=== PATIENT | male | born 1945 | race Caucasian/White ===

== ENCOUNTER 2019-07-14 11:08 | Inpatient (IN) | payer MEDICARE, OTHER ==
[2019-07-08 15:55] LABS: BASOPHILS # (AUTO) 0.1 X10'3 (0-0.2); EOSINOPHILS # (AUTO) 0.2 X10'3 (0-0.9); EOSINOPHILS % (AUTO) 2.7 % (0-6); LYMPHOCYTES # (AUTO) 2.2 X10'3 (1.1-4.8); LYMPHOCYTES % (AUTO) 31.9 % (21-51); MEAN CORPUSCULAR HEMOGLOBIN 30.8 PG (27.0-31.0); MEAN CORPUSCULAR HGB CONC 34.5 g/dL (33.0-36.5); MEAN CORPUSCULAR VOLUME 89.2 FL (78-98); MONOCYTES # (AUTO) 0.7 X10'3 (0-0.9); MONOCYTES % (AUTO) 10.4 % (2-12); NEUTROPHILS # (AUTO) 3.8 X10'3 (1.8-7.7); PRE OP HEMATOCRIT 42.8 % (42.0-52.0); PRE OP HEMOGLOBIN 14.8 g/dL (14.0-17.9); PRE OP PLATELET COUNT 263 X10'3 (140-440); RED CELL DISTRIBUTION WIDTH 14.2 % (11.5-14.5)
[2019-07-08 16:05] LABS: ALBUMIN 4.6 G/DL (3.4-5.0); ALBUMIN/GLOBULIN RATIO 1.2 (1.1-1.5); ALKALINE PHOSPHATASE 78 IU/L (46-116); BLOOD UREA NITROGEN 13 MG/DL (7-18); BUN/CREATININE RATIO 15.1 (5.4-32.0); CALCIUM 9.3 MG/DL (8.5-10.1); CHLORIDE 105 MMOL/L (99-107); CREATININE 0.86 MG/DL (0.60-1.10); PRE OP ALT 53 U/L (30-65); PRE OP ANION GAP 6 (8-16); PRE OP AST 26 U/L (10-37); PRE OP BILIRUB, TOTAL 0.6 MG/DL (0.0-1.0); PRE OP GLUCOSE 87 MG/DL (70-104); PRE OP SODIUM 143 MMOL/L (135-145); TOTAL CARBON DIOXIDE 32.1 MMOL/L (24-32); TOTAL PROTEIN 8.5 G/DL (6.4-8.2); eGFR 87 ML/MIN
[2019-07-08 16:08] LABS: HEMOGLOBIN A1C 5.9 % (4.5-6.2)
[2019-07-13] MEDS: normal saline 1000ml 1,000 ML IV SCH (15:15)
[2019-07-14] VITALS (13 sets, daily range): BP systolic 121–151; BP diastolic 48–83
[~2019-07-14] VITALS: Ht 180.3 cm; Wt 96.3 kg
[~2019-07-14 11:08] MED LIST: ALOG25TA2 PEG; CHOL10002 PO; GABA-530 PO; GLIM1TAB3 PO; LOSA25TA96 PO; SIMV10TA2 PO; TRAM50TA2 PO; acetaminophen 325mg tablet PO ONE; famotidine 20mg tablet PO ONE; gabapentin 300mg capsule PO ONE; metoclopramide 5 mg/ml inj IV ONE; oxyCODONE SR 10mg (sust. release) tab PO ONE; ringers solution, lacted 1,000 ML IV SCH; tranexamic acid inj. 1,000 MG in normal saline 100 ML IV ONE
[2019-07-14] MEDS ORDERED: cefazolin/dext.iso 2gm/100 ML IV ONE (11:45)
[2019-07-14] MEDS ORDERED: vancomycin inj 1,500 MG in normal saline 300ml IV soln IV ONE (11:45)
[2019-07-14] MEDS ORDERED: ketorolac trometh. 30mg/ml inj. ONE (14:31)
[2019-07-14] MEDS ORDERED: epiNEPHrine 1 mg/ml inj ONE (14:31)
[2019-07-14] MEDS ORDERED: morphine 10mg/ml inj. ONE (14:32)
[2019-07-14] MEDS ORDERED: Thrombin (Bovine) 5,000 unit vial TP ONE (14:32)
[2019-07-14] MEDS ORDERED: ceFAZolin 1000mg inj ONE (14:32)
[2019-07-14] MEDS ORDERED: ROPIVAcaine 0.5% (5mg/ml) 30ml vial ONE ×2 (14:32→18:29)
[2019-07-14] MEDS ORDERED: ringers solution, lacted 1,000 ML IV SCH (14:36)
[2019-07-14] MEDS ORDERED: meperidine/PF 25mg/ml syringe IV PRN ×3 (14:40)
[2019-07-14] MEDS ORDERED: morphine 4 MG/ML inj SYRINge IV PRN ×2 (14:40)
[2019-07-14] MEDS ORDERED: ondansetron/PF 4mg/2ml inj IV PRN ×2 (14:40→18:20)
[2019-07-14] MEDS ORDERED: proCHLORperazine 10 MG/2 ml inj IV PRN (14:40)
[2019-07-14] MEDS ORDERED: fentaNYL/PF 50MCG/1 ML 2ML syringe ONE (15:40)
[2019-07-14] MEDS ORDERED: MIDAZolam 5mg/5ml vial ONE (15:40)
[2019-07-14] MEDS ORDERED: ePHEDrine 50MG/ML INJ. ONE (16:09)
[2019-07-14] MEDS ORDERED: calcium chloride 100 MG/1 ML inj IV ONE (16:47)
[2019-07-14] MEDS ORDERED: vancomycin 1,000mg inj ONE (17:59)
[2019-07-14] MEDS ORDERED: HYDROmorphone inj. 0.5 MG/0.5 ML DISP.SYRIN IV PRN (18:20)
[2019-07-14] MEDS ORDERED: oxyCODONE IR 5mg (immed. release) tablet PO PRN (18:20)
[2019-07-14] MEDS ORDERED: HYDROmorphone 1 mg/ml syringe IV PRN (18:20)
[2019-07-14] MEDS ORDERED: diphenhydrAMINE 25mg capsule PO PRN ×2 (18:20)
[2019-07-14] MEDS ORDERED: magnesium hydroxide 30ml (MOM) UD suspension PO PRN (18:20)
[2019-07-14] MEDS ORDERED: acetaminophen 325mg tablet PO PRN (18:20)
[2019-07-14] MEDS ORDERED: bisacodyl 10mg suppository rectal RC PRN (18:20)
[2019-07-14] MEDS ORDERED: dexamethasone sod phosphate 4mg/ml inj. ONE (18:29)
--- NOTE | 2019-07-14 19:16 | NUR ---
Received from OR via ORTHO BED WITH [facility], accompanied by Anesthesiologist HOLLAND and report given by Anesthesiolgist. DENIES PAIN, SENSATION LEVEL DOWN TO ANKLE. NERVE BLOCK SITE TO RIGHT THIGH AND KNEE WRAP COLD PACK TO RIGHT KNEE THAT IS CDI. + DORSALIS PEDIS PRESENT. YEIMI FRANCOIS FOR COMFORT. SCDS DONNED. 3L NASAL CANNULA PRESENT WITH 97% SATURATIONS. AYAD. Addendum: 07/14/19 at 1932 by Hieu Ty RN, RN Amended: Links added.
[2019-07-14] MEDS ORDERED: gabapentin 100mg capsule PO SCH (20:00)
[2019-07-14] MEDS ORDERED: vancomycin/NS 1 GM ADD-VANTAGE 250 ML IV SCH (20:00)
[2019-07-14] MEDS ORDERED: ROPIVAcaine 0.2%/PF PAIN PUMP 550 ML IJ SCH (20:03)
--- NOTE | 2019-07-14 20:06 | NUR ---
ALL CRITERIA FOR TRANSFER TO THE FLOOR HAS BEEN ACHIEVED. VSS. BED LOW, CALL LIGHT AND VS. SET IN PLACE. RN PRESENT TO ACCEPT CARE. PATIENT RESTING COMFORTABLY IN BED. BELONGINGS SENT WITH PATIENT. DRESSINGS CDI. Addendum: 07/14/19 at 2013 by Hieu Ty RN RN Amended: Links added.
[2019-07-14] MEDS: glimepiride 1 MG tablet PO SCH (21:00)
[2019-07-14] MEDS: atorvastatin 10mg tablet PO SCH (21:00)
[2019-07-14] MEDS: vitamin D (cholecalciferol) 1,000 unit tablet PO SCH (21:00)
[2019-07-14] MEDS ORDERED: traMADol 50MG tablet PO PRN (21:00)
[2019-07-14] MEDS: acetaminophen 325mg tablet PO SCH (21:00)
[2019-07-14] MEDS: losartan 25mg tablet PO SCH (21:00)
[2019-07-14] MEDS: gabapentin 300mg capsule PO SCH (21:01)
[2019-07-14] MEDS: sennosides 8.6mg tablet PO SCH (21:02)
[2019-07-14] MEDS ORDERED: tranexamic acid inj. 1,000 MG in normal saline 100ml IV soln 100 ML IV ONE (21:30)
[2019-07-15] MEDS: ceFAZolin 1GM/D5W- ADD-VANTAGE 50 ML IV SCH ×2 (01:10→07:13)
[2019-07-15] MEDS: acetaminophen 325mg tablet PO SCH ×4 (01:14→20:20)
[2019-07-15 02:12] VITALS: BP 111/59
[2019-07-15] MEDS: oxyCODONE IR 5mg (immed. release) tablet PO PRN ×3 (05:25→14:11)
[2019-07-15 05:50] LABS: BASOPHILS % (AUTO) 0.1 % (0-1); EOSINOPHILS % (AUTO) 0 % (0-6); HEMATOCRIT 39.6 % (42.0-52.0); HEMOGLOBIN 13.8 g/dl (14.0-17.9); LYMPHOCYTES # (AUTO) 0.5 X10'3 (1.1-4.8); LYMPHOCYTES % (AUTO) 2.6 % (21-51); MEAN CORPUSCULAR HEMOGLOBIN 31.2 PG (27.0-31.0); MEAN CORPUSCULAR HGB CONC 34.7 g/dL (33.0-36.5); MEAN CORPUSCULAR VOLUME 89.7 FL (78-98); MEAN PLATELET VOLUME 7.2 FL (7.4-10.4); MONOCYTES # (AUTO) 0.9 X10'3 (0-0.9); MONOCYTES % (AUTO) 4.9 % (2-12); NEUTROPHILS # (AUTO) 17.7 X10'3 (1.8-7.7); NEUTROPHILS % (AUTO) 92.4 % (42-75); PLATELET COUNT 194 X10'3 (140-440); RED BLOOD COUNT 4.41 X10'6 (4.70-6.10); RED CELL DISTRIBUTION WIDTH 13.9 % (11.5-14.5); WHITE BLOOD COUNT 19.2 X10'3 (4.5-11.0)
[2019-07-15 06:02] LABS: ANION GAP 8 (8-16); CHLORIDE 105 MMOL/L (99-107); POTASSIUM 4.5 MMOL/L (3.5-5.1); SODIUM 139 MMOL/L (135-145); TOTAL CARBON DIOXIDE 26.3 MMOL/L (24-32)
--- NOTE | 2019-07-15 06:15 | NUR ---
Problems reprioritized. Patient report given, questions answered & plan of care reviewed with ERNESTO Yu and ERNESTO Cody.
[2019-07-15 06:39] VITALS: BP 113/43
--- NOTE | 2019-07-15 06:40 | NUR ---
Patient in room ORTHO 4014. I have received report from Danay OROZCO and had the opportunity to ask questions and assume patient care.
[2019-07-15] MEDS: gabapentin 300mg capsule PO SCH ×3 (07:12→20:19)
[2019-07-15] MEDS: enoxaparin 40mg/0.4ml syringe SQ SCH (07:14)
[2019-07-15 10:04] VITALS: BP 101/51
--- NOTE | 2019-07-15 11:00 | NUR ---
Pt wanting to sit up in recliner refusing CPM at this time.
[2019-07-15 14:00] VITALS: BP 111/61
[2019-07-15] MEDS: normal saline 1000ml 1,000 ML IV SCH (14:12)
--- NOTE | 2019-07-15 15:41 | NUR ---
anesthesiologist turn on-q to 12ml/hr said to turn down to 10 when pain is at a zero.
[2019-07-15 18:00] VITALS: BP 115/53
--- NOTE | 2019-07-15 18:12 | NUR ---
Problems reprioritized. Patient report given, questions answered & plan of care reviewed with ROCIO OROZCO.
[2019-07-15] MEDS: celeCOXIB 100mg capsule PO SCH (20:20)
[2019-07-15] MEDS: sennosides 8.6mg tablet PO SCH (20:21)
[2019-07-15] MEDS: losartan 25mg tablet PO SCH (20:21)
[2019-07-15] MEDS: vitamin D (cholecalciferol) 1,000 unit tablet PO SCH (20:21)
[2019-07-15] MEDS: glimepiride 1 MG tablet PO SCH (20:21)
[2019-07-15] MEDS: atorvastatin 10mg tablet PO SCH (20:21)
--- NOTE | 2019-07-15 21:00 | NUR ---
patient stated that MD said he would be bringing the CPM home. Charge nurse tried explaining that it would not be the same machine, as we do not send equipment home with patients. MD orders one that is for rent and paid for by insurance. process planner would set this up for him. He started yelling at her and stating that this is what the MD said and he was mad that it was not as simple as loading it up in the car and leaving.
[2019-07-15 22:00] VITALS: BP 105/51
--- NOTE | 2019-07-15 23:41 | NUR ---
patient was yelling out in room that something happened while on CPM. he said that it made a loud clunk and now it wasn't working right. I checked machine and settings were still at -5 to 90 degrees. He said his knee WAS going up to the bottom of the tv but now it was not going as high. I stated that maybe the tv got moved. He was adamant that this was not the case. He said it brendan him awake and he was now 8/10 pain. I offered pain medication, he said he took some just a little bit ago. I explained that he had had gabapentin and tylenol, but if he was in 8/10 pain I could give him some Oxy. He refused this and he refused my offer of a cold powder pack. Patient allowed me to take CPM off, as it was over 1 hour since placing it on.
[2019-07-16] MEDS: oxyCODONE IR 5mg (immed. release) tablet PO PRN ×3 (00:42→12:16)
--- NOTE | 2019-07-16 00:49 | NUR ---
patient still c/o pain and distress from CPM. he states that he "used to be able to bend his knee up high with little pain" and "now, when I do it it hurts 8/10, ever since the CPM made that snap". I asked patient if he felt like something "snapped in his knee". he said no. I tried to explain to patient that 24 hours post op is when it starts to really hurt and that since CPM hadn't been used except for once today, that was probably why he was in so much pain now. He adamantly insisted that it was fine before the CPM clunked and jerked his leg. I appeased patient by notifying Dr. Becerra by phone. No new order for xray. stated that patient can be difficult and understood that the CPM was not snapping or clunking when nursing assessed it. I let the patient know that MD was notified and he would see him tomorrow before DC. Oxy and powder pack given for pain management
[2019-07-16] MEDS: acetaminophen 325mg tablet PO SCH ×3 (02:00→14:11)
--- NOTE | 2019-07-16 05:36 | NUR ---
awoke patient to give him pain analgesic prior to PT. He stated "I don't know what happened last night. It must've been all the medications". His voice was mellow and calm at this time. I did not bring up that he had not had any different "medication" and that he had refused analgesics up to that point.
[2019-07-16 05:45] LABS: BASOPHILS # (AUTO) 0.1 X10'3 (0-0.2); BASOPHILS % (AUTO) 0.5 % (0-1); EOSINOPHILS # (AUTO) 0.3 X10'3 (0-0.9); EOSINOPHILS % (AUTO) 2.5 % (0-6); HEMATOCRIT 34.6 % (42.0-52.0); LYMPHOCYTES # (AUTO) 0.9 X10'3 (1.1-4.8); MEAN CORPUSCULAR HGB CONC 34.8 g/dL (33.0-36.5); MEAN CORPUSCULAR VOLUME 88.9 FL (78-98); MONOCYTES # (AUTO) 0.8 X10'3 (0-0.9); MONOCYTES % (AUTO) 7.1 % (2-12); NEUTROPHILS # (AUTO) 9.1 X10'3 (1.8-7.7); NEUTROPHILS % (AUTO) 81.9 % (42-75); PLATELET COUNT 162 X10'3 (140-440); RED BLOOD COUNT 3.89 X10'6 (4.70-6.10); RED CELL DISTRIBUTION WIDTH 14.3 % (11.5-14.5); WHITE BLOOD COUNT 11.1 X10'3 (4.5-11.0)
[2019-07-16 06:00] VITALS: BP 97/52
--- NOTE | 2019-07-16 06:05 | NUR ---
Patient in room ORTHO 4014. I have received report from ROCIO OROZCO and had the opportunity to ask questions and assume patient care.
--- NOTE | 2019-07-16 06:11 | NUR ---
Problems reprioritized. Patient report given, questions answered & plan of care reviewed with ERNESTO Cody.
--- NOTE | 2019-07-16 08:00 | NUR ---
ON-Q TURNED DOWN TO 10ML/HR
[2019-07-16] MEDS: gabapentin 300mg capsule PO SCH ×2 (08:26→14:11)
[2019-07-16] MEDS: enoxaparin 40mg/0.4ml syringe SQ SCH (08:27)
[2019-07-16] MEDS: celeCOXIB 100mg capsule PO SCH (08:27)
[2019-07-16 10:00] VITALS: BP 122/54
[2019-07-16] MEDS ORDERED: acetaminophen 325mg tablet PO PRN (18:20)
== END 2019-07-16 16:30 | disposition home health service (06) | DRG 467 ==
LOC: PAS IN 11:08 → EDSTATUS 13:45 → ORTHO 4S 20:10
PROVIDERS: ADMIT Orthopaedic Surgery; ATTEND Orthopaedic Surgery
PROC: 3E0T3BZ Introduction of Anesthetic Agent into Peripheral Nerves and Plexi, Percutaneous Approach (ICD-10-PCS; 2019-07-14)
PROC: 8E0YXBZ Computer Assisted Procedure of Lower Extremity (ICD-10-PCS; 2019-07-14)
PROC: 8E0Y0CZ Robotic Assisted Procedure of Lower Extremity, Open Approach (ICD-10-PCS; 2019-07-14)
PROC: 0T7D8ZZ Dilation of Urethra, Via Natural or Artificial Opening Endoscopic (ICD-10-PCS; 2019-07-14)
PROC: 0T9B80Z Drainage of Bladder with Drainage Device, Via Natural or Artificial Opening Endoscopic (ICD-10-PCS; 2019-07-14)
PROC: 0SPV0JZ Removal of Synthetic Substitute from Right Knee Joint, Tibial Surface, Open Approach (ICD-10-PCS; principal; 2019-07-14 15:32)
PROC: 0SRV0J9 Replacement of Right Knee Joint, Tibial Surface with Synthetic Substitute, Cemented, Open Approach (ICD-10-PCS; 2019-07-14 15:32)
DX: T84.82XA Fibrosis due to internal orthopedic prosthetic devices, implants and grafts, initial encounter (principal); D62 Acute posthemorrhagic anemia; N36.5 Urethral false passage; E11.9 Type 2 diabetes mellitus without complications; N40.0 Benign prostatic hyperplasia without lower urinary tract symptoms; E78.5 Hyperlipidemia, unspecified; I10 Essential (primary) hypertension; Y83.1 Surgical operation with implant of artificial internal device as the cause of abnormal reaction of the patient, or of later complication, without mention of misadventure at the time of the procedure; Y92.89 Other specified places as the place of occurrence of the external cause; Z79.899 Other long term (current) drug therapy; Z87.891 Personal history of nicotine dependence
CPT/HCPCS: 36415; 80051; 80053; 82948; 83036; 85025; 87081; 93005; 97110; 97116; 97161; 97530; A4215; A4340; A4618; A7000; A9272; C1713; C1758; C1769; C1776; G0378; J0171; J0690; J1100; J1650; J1885; J2250; J2270; J2765; J2795; J3010; J3370; J7030; J7120

== ENCOUNTER 2019-07-17 20:48 | Emergency (ER) | payer MEDICARE ==
[~2019-07-17] VITALS: Ht 177.8 cm; Wt 212.0 kg
[~2019-07-17 20:48] MED LIST changes: -acetaminophen 325mg tablet PO ONE; -famotidine 20mg tablet PO ONE; -gabapentin 300mg capsule PO ONE; -metoclopramide 5 mg/ml inj IV ONE; -oxyCODONE SR 10mg (sust. release) tab PO ONE; -ringers solution, lacted 1,000 ML IV SCH; -tranexamic acid inj. 1,000 MG in normal saline 100 ML IV ONE
[2019-07-17 22:19] VITALS: BP 135/56
== END 2019-07-17 22:22 | disposition home or self-care (01) ==
LOC: ER 20:48
DX: T83.038A Leakage of other urinary catheter, initial encounter (principal); E78.00 Pure hypercholesterolemia, unspecified; I10 Essential (primary) hypertension; E11.9 Type 2 diabetes mellitus without complications; Z98.890 Other specified postprocedural states; Z79.899 Other long term (current) drug therapy; Y84.6 Urinary catheterization as the cause of abnormal reaction of the patient, or of later complication, without mention of misadventure at the time of the procedure; Y92.89 Other specified places as the place of occurrence of the external cause
CPT/HCPCS: 99281; 99282

== ENCOUNTER 2021-04-16 12:16 | Inpatient (IN) | payer MEDICARE ==
[2021-04-11 11:48] LABS: BASOPHILS # (AUTO) 0.1 X10'3 (0-0.2); BASOPHILS % (AUTO) 0.9 % (0-1); EOSINOPHILS # (AUTO) 0.2 X10'3 (0-0.9); EOSINOPHILS % (AUTO) 3.4 % (0-6); LYMPHOCYTES # (AUTO) 2.1 X10'3 (1.1-4.8); LYMPHOCYTES % (AUTO) 29.9 % (21-51); MEAN CORPUSCULAR HEMOGLOBIN 30.3 PG (27.0-31.0); MEAN CORPUSCULAR VOLUME 89.3 FL (78-98); MONOCYTES # (AUTO) 0.6 X10'3 (0-0.9); MONOCYTES % (AUTO) 9.1 % (2-12); NEUTROPHILS % (AUTO) 56.7 % (42-75); PRE OP HEMATOCRIT 42.7 % (42.0-52.0); PRE OP HEMOGLOBIN 14.5 g/dL (14.0-17.9); PRE OP PLATELET COUNT 225 X10'3 (140-440); RED BLOOD COUNT 4.79 X10'6 (4.70-6.10); RED CELL DISTRIBUTION WIDTH 13.4 % (11.5-14.5)
[2021-04-11 12:07] LABS: PRE OP INR 1.1 INR; PRE OP PROTIME 11.1 SECONDS (9.0-12.0)
[2021-04-11 12:10] LABS: ALBUMIN 4.2 G/DL (3.4-5.0); ALBUMIN/GLOBULIN RATIO 1.1 (1.1-1.5); ALKALINE PHOSPHATASE 94 IU/L (46-116); BLOOD UREA NITROGEN 10 MG/DL (7-18); BUN/CREATININE RATIO 12.5 (5.4-32.0); CALCIUM 9.2 MG/DL (8.5-10.1); CHLORIDE 101 MMOL/L (99-107); PRE OP ALT 46 U/L (30-65); PRE OP ANION GAP 7 (8-16); PRE OP AST 32 U/L (10-37); PRE OP BILIRUB, TOTAL 0.5 MG/DL (0.0-1.0); PRE OP GLUCOSE 151 MG/DL (70-104); PRE OP SODIUM 140 MMOL/L (135-145); TOTAL CARBON DIOXIDE 31.7 MMOL/L (24-32); TOTAL PROTEIN 7.9 G/DL (6.4-8.2); eGFR > 90 ML/MIN
[2021-04-11 12:16] LABS: HEMOGLOBIN A1C 7.2 % (4.5-6.2)
[~2021-04-16] VITALS: Ht 177.8 cm; Wt 98.6 kg
[2021-04-16] VITALS (17 sets, daily range): BP systolic 110–159; BP diastolic 51–81
[~2021-04-16 12:16] MED LIST changes: -ALOG25TA2 PEG; -GABA-530 PO; -GLIM1TAB3 PO; +METF750T46 PO; +TERA1CAP4 PO; -TRAM50TA2 PO; +cefazolin/dext.iso 2gm/100ml IV ONE; +famotidine 20mg tablet PO ONE; +ringers solution, lacted 1,000 ML IV SCH; +vancomycin 1,500 MG in NS 300ml IV soln IV ONE
[2021-04-16] MEDS ORDERED: morphine 4 MG/ML inj SYRINge IV PRN (13:20)
[2021-04-16] MEDS ORDERED: morphine 2 MG/ML inj. syringe IV PRN (13:20)
[2021-04-16] MEDS ORDERED: ondansetron/PF 4mg/2ml inj IV PRN ×2 (13:20→18:20)
[2021-04-16] MEDS ORDERED: ringers solution, lacted 1,000 ML IV SCH (13:20)
[2021-04-16] MEDS ORDERED: hydrALAZINE 20mg/ml inj. IV PRN (13:20)
[2021-04-16] MEDS ORDERED: fentaNYL/PF 50MCG/1 ML 2ML syringe IV PRN ×2 (13:20)
[2021-04-16] MEDS ORDERED: labetalol 20mg/4ml (5mg/ml) syringe IV PRN (13:20)
--- NOTE | 2021-04-16 13:45 | NUR ---
PT C/O ITCHING CURRENTLY RECEIVING VANCOMYCIN IVPB, DR SPANN AT BEDSIDE-ORDERS GIVEN TO CHANGE ABX TO CLINDAMYCIN. PT WILL STAY OVERNIGHT AFTER SX
[2021-04-16] MEDS ORDERED: clindamycin 600mg/D5W 50ml 50 ML IV STA (13:53)
[2021-04-16] MEDS ORDERED: BUPIVAcaine/PF 2.5 mg/ml (0.25%) 30ml vial ONE (14:01)
[2021-04-16] MEDS ORDERED: LIDOcaine 2% (20mg/ml) 5ml vial ONE ×2 (14:19→14:20)
[2021-04-16] MEDS ORDERED: fentaNYL/PF 50MCG/1 ML 2ML syringe ONE ×2 (14:19→16:01)
[2021-04-16] MEDS ORDERED: propofol inj 20 ML IV ONE (14:20)
[2021-04-16] MEDS ORDERED: ondansetron/PF 4mg/2ml inj ONE (14:21)
[2021-04-16] MEDS ORDERED: sevoflurane 250ml liquid IH ONE (14:22)
[2021-04-16] MEDS ORDERED: ePHEDrine 50MG/ML INJ. ONE (14:43)
[2021-04-16] MEDS ORDERED: labetalol 20mg/4ml (5mg/ml) syringe IV ONE (15:27)
[2021-04-16] MEDS ORDERED: hydrALAZINE 20mg/ml inj. IV ONE (16:34)
--- NOTE | 2021-04-16 18:14 | NUR ---
Received from OR via BED, accompanied by Anesthesiologist DR. TRACEY and report given by Anesthesiologist. PATIENT IS LAYING ON BED SPINE, SLEEPY, SOME MOVEMENT TO VOICE, V.S. STABLE, LEFT FOREARM WITH DRESSING AND AKIN WRAP, PIV ON RIGHT HAND 18G, LR RUNNING, WILL MONITOR. Addendum: 04/16/21 at 1834 by Ilda Sauer RN Amended: Links added.
[2021-04-16] MEDS ORDERED: acetaminophen 325mg tablet PO PRN (18:20)
[2021-04-16] MEDS ORDERED: bisacodyl 10mg suppository rectal RC PRN (18:20)
[2021-04-16] MEDS ORDERED: diphenhydrAMINE 25mg capsule PO PRN ×2 (18:20)
[2021-04-16] MEDS ORDERED: HYDROmorphone 1 mg/ml syringe IV PRN (18:20)
[2021-04-16] MEDS ORDERED: magnesium hydroxide 30ml (MOM) UD suspension PO PRN (18:20)
[2021-04-16] MEDS ORDERED: MESSAGE TO PHARMACY PO ONE (18:25)
[2021-04-16] MEDS ORDERED: dextrose ORAL solution 15 GM/59 ML bottle PO PRN ×2 (18:25)
[2021-04-16] MEDS ORDERED: insulin Lispro (HumaLOG) vial - multi-dose SQ SCH (18:25)
[2021-04-16] MEDS ORDERED: glucagon, human recombinant 1mg kit SUBCUT PRN (18:25)
[2021-04-16] MEDS ORDERED: dextrose 50%-water 50ml dispensing syringe IV PRN ×2 (18:25)
[2021-04-16] MEDS: HYDROcodone/acetaminophen 10/325mg tab PO PRN (19:13)
--- NOTE | 2021-04-16 19:24 | NUR ---
REPORT GIVEN TO MARCH RN IN ORTHO, PATIENT'S V.S. STABLE, A&O, LEFT ARM WITH DRESSING AND AKIN WRAP CDI, ICE ON LEFT ARM, ELEVATED WITH PILLOWS, PIV 18G ON RIGHT HAND LR RUNNING AT 100ML/HR, TRANSFERRED IN BED, RECEIVING NURSE AT BEDSIDE. Addendum: 04/16/21 at 1952 by Ilda Sauer RN Amended: Links added.
[2021-04-16] MEDS: clindamycin 600mg/D5W 50ml 50 ML IV SCH (20:49)
[2021-04-16] MEDS ORDERED: losartan 25mg tablet PO SCH (21:00)
[2021-04-16] MEDS ORDERED: metFORMIN 500mg tablet PO SCH (21:00)
[2021-04-16] MEDS ORDERED: insulin glargine (Lantus) pen - multi-dose SQ SCH (21:00)
[2021-04-16] MEDS ORDERED: sennosides 8.6mg tablet PO SCH (21:00)
[2021-04-16] MEDS ORDERED: Terazosin 1mg capsule PO SCH (21:00)
[2021-04-17] MEDS: ceFAZolin/D5W- 1GM premix 50 ML IV SCH ×2 (00:24→08:35)
[2021-04-17] MEDS: HYDROcodone/acetaminophen 10/325mg tab PO PRN ×4 (00:25→14:49)
[2021-04-17] MEDS: potassium Cl 20mEq in NS 1,000 ML IV SCH ×2 (00:28→07:40)
[2021-04-17 02:00] VITALS: BP 109/67
[2021-04-17] MEDS: clindamycin 600mg/D5W 50ml 50 ML IV SCH (02:04)
--- NOTE | 2021-04-17 06:37 | NUR ---
Patient in room ORTHO 4013. I have received report from Maci RN and had the opportunity to ask questions and assume patient care.
[2021-04-17 06:54] VITALS: BP 116/57
--- NOTE | 2021-04-17 09:08 | NUR ---
DM Consult: Pt A1C 7.2 appropriate given age. Addendum: 04/17/21 at [address] Amended: Links added.
[2021-04-17 11:45] VITALS: BP 101/51
[2021-04-17] MEDS ORDERED: HYDR-3972 PO (14:41)
--- NOTE | 2021-04-17 14:55 | NUR ---
Reinforced dressing per Caren Sifuentes NP verbal order. Patient will go home with cold pack and dressings to reinforce if needed. Patient and are both aware not to remove dressing until appointment with MD. Verbal acknowledgement completed by patient of understanding. Addendum: 04/17/21 at 1458 by Kyleigh Robert RN Sling provided and placed on patient.
== END 2021-04-17 16:31 | disposition home or self-care (01) | DRG 514 ==
LOC: PAS 12:16 → ORTHO 4S 18:19 → PAS 18:19 → PAS IN 19:00 → ORTHO 4S 19:06 → PAS 04-17 16:31
PROVIDERS: ADMIT Orthopaedic Surgery; ATTEND Orthopaedic Surgery
PROC: 0RGP07Z Fusion of Left Wrist Joint with Autologous Tissue Substitute, Open Approach (ICD-10-PCS; principal; 2021-04-16 14:22)
DX: M19.032 Primary osteoarthritis, left wrist (principal); I10 Essential (primary) hypertension; E11.9 Type 2 diabetes mellitus without complications; N40.0 Benign prostatic hyperplasia without lower urinary tract symptoms; Z79.899 Other long term (current) drug therapy
CPT/HCPCS: 36415; 80053; 82948; 83036; 85025; 85610; 85730; 87081; 93005; A4215; A4618; A6223; A6449; A7000; C1713; G0378; J0360; J0690; J1815; J2001; J2405; J2704; J3010; J3370; J3480; J3490; J7040; J7120

== ENCOUNTER 2024-02-01 14:48 | Emergency (ER) | payer MEDICARE, OTHER ==
[~2024-02-01] VITALS: Ht 180.3 cm; Wt 104.5 kg
[~2024-02-01 14:48] MED LIST changes: -CHOL10002 PO; +HYDR-3972 PO; +LOSA-415 PO; -LOSA25TA96 PO; -SIMV10TA2 PO; -cefazolin/dext.iso 2gm/100ml IV ONE; -famotidine 20mg tablet PO ONE; -ringers solution, lacted 1,000 ML IV SCH; -vancomycin 1,500 MG in NS 300ml IV soln IV ONE
[2024-02-01 15:00] VITALS: BP 138/72; PULSE 59; RESP 20; TEMP 97; O2SAT 99
== END 2024-02-01 16:29 | disposition home or self-care (01) ==
LOC: ER 14:49
DX: S00.01XA Abrasion of scalp, initial encounter (principal); I10 Essential (primary) hypertension; E78.00 Pure hypercholesterolemia, unspecified; E11.9 Type 2 diabetes mellitus without complications; Z98.890 Other specified postprocedural states; Z79.4 Long term (current) use of insulin; Z79.899 Other long term (current) drug therapy; W22.8XXA Striking against or struck by other objects, initial encounter; Y93.89 Activity, other specified; Y92.89 Other specified places as the place of occurrence of the external cause; Y99.8 Other external cause status
CPT/HCPCS: 70450; 99284

== ENCOUNTER 2025-11-28 05:49 | Day surgery (SDC) | payer MEDICARE, OTHER ==
[2025-11-17 14:25] LABS: MEAN PLATELET VOLUME 7.2 FL (7.4-10.4); PRE OP HEMATOCRIT 45.8 % (42.0-52.0); PRE OP HEMOGLOBIN 15.8 g/dL (14.0-17.9); PRE OP PLATELET COUNT 224 X10'3 (140-440); PRE OP WHITE BLOOD COUNT 6.8 10'3 (4.8-10.8); RED CELL DISTRIBUTION WIDTH 14.1 % (11.5-14.5)
--- NOTE | 2025-11-17 14:26 | ELECTROCARDIOGRAPH REPORT ---
[facility] Test Date: 2025-11-17 Test Time: 14:24:03 Pat Name: JOHN DASH Department: [facility]-PRE-OP Patient ID: [facility]-[id number] Room: Gender: M Nursing Agency Manager: sadia : 1945 Requested By: LUIS ZABALA Order Number: [id number] Reading MD: Dr. Shell Barker Measurements Intervals [place] Rate: 61 P: 69 MN: 213 QRS: 29 QRSD: 152 T: 63 QT: 453 QTc: 457 Interpretive Statements Sinus rhythm Borderline prolonged MN interval Right bundle branch block Electronically Signed On 11-17-2025 15:17:[address] Shell Barker Please click the below link to view image of tracing.
[2025-11-17 14:38] LABS: CREATININE 0.89 MG/DL (0.60-1.10); PRE OP ALT 48 U/L (30-65); PRE OP ANION GAP 8 (8-16); PRE OP AST 28 U/L (10-37); PRE OP BILIRUB, TOTAL 0.6 MG/DL (0.0-1.0); PRE OP GLUCOSE 106 MG/DL (70-104); PRE OP POTASSIUM 4.3 MMOL/L (3.4-5.1); PRE OP SODIUM 140 MMOL/L (135-145); TOTAL CARBON DIOXIDE 29.7 MMOL/L (24-32); eGFR 82 ML/MIN
[~2025-11-28] VITALS: Ht 177.8 cm; Wt 93.4 kg
[2025-11-28] VITALS (8 sets, daily range): BP systolic 122–145; BP diastolic 68–76; PULSE 50–61; RESP 10–18; TEMP 97.4; O2SAT 97–100
[~2025-11-28 05:49] MED LIST changes: +ATOR10TA87 PO; +CELE-193 PO; +CHOL20002 PO; +DULO30CA52 PO; +EMPA25TA PO; +GLIM2TAB6 PO; -HYDR-3972 PO; -METF750T46 PO; +PREG75CA76 PO; +SITA100T15 PO; -TERA1CAP4 PO
[2025-11-28] MEDS: ceFAZolin 2gm/dext,iso 50mL 50 ML IV ONE (06:28)
[2025-11-28] MEDS: ringers solution, lacted 1,000 ML IV SCH (06:29)
[2025-11-28] MEDS ORDERED: BUPIVAcaine/PF 2.5mg/ml (0.25%) 10ml vial ONE (06:50)
[2025-11-28] MEDS ORDERED: LIDOcaine 2% (20mg/ml) 5ml vial ONE ×2 (07:07→08:33)
[2025-11-28] MEDS ORDERED: midazolam 1 mg/ML 2ml injection ONE (08:29)
[2025-11-28] MEDS ORDERED: fentaNYL/PF 50MCG/1 ML 2ML syringe ONE (08:29)
[2025-11-28] MEDS ORDERED: propofol inj 20 ML IV ONE (08:33)
--- NOTE | 2025-11-28 12:07 | OPERATIVE REPORT ---
Operative Report Providers to ~ Date of Procedure: Nov 28, 2025 Pre-Operative Diagnosis: Right wrist carpal tunnel syndrome Post-Operative Diagnosis SAME as PRE-Op Procedure Performed Right wrist open carpal tunnel release Surgeon: Hector Christian MD Director Distribution None Anesthesiologist: Jeison Chopra Type of Anesthesia: Other (Local anesthetic) Findings: Estimated Blood Loss: None Specimen Removed: None Description of Procedure: The patient is a 80-year-old man with carpal tunnel syndrome refractory to nonsurgical treatment. Surgery is indicated to improve function. Risks and benefits were discussed with the patient and he agreed to proceed. He was brought to the operating room where the arm was prepped and draped in usual manner. Local anesthetic was infiltrated proximal to the wrist crease and tourniquet was elevated on the forearm. After proper time-out procedure was observed a 3 cm incision was made in the palm ulnar to the thenar crease in line with the radial side of the ring finger. The incision was made through skin and palmar fascia the transverse carpal ligament was then opened in line with the skin incision exposing the median nerve. The fascia was divided distally to the transverse arch and then proximally to the wrist crease followed by division of the forearm fascia. This incision was then irrigated and closed with nylon suture. Sterile dressing was applied and the tourniquet was released. The hand perfused well and the patient was taken to the recovery room in stable condition. The patient tolerated the procedure well. HECTOR CHRISTIAN Jr., MD Nov 28, 2025 12:07
== END 2025-11-28 09:48 | disposition home or self-care (01) ==
LOC: PAS 05:49
PROVIDERS: ATTEND Orthopaedic Surgery Hand Surgery
DX: G56.01 Carpal tunnel syndrome, right upper limb (principal); E11.9 Type 2 diabetes mellitus without complications; E66.9 Obesity, unspecified; G25.81 Restless legs syndrome; I10 Essential (primary) hypertension; I44.0 Atrioventricular block, first degree; I45.10 Unspecified right bundle-branch block; M25.60 Stiffness of unspecified joint, not elsewhere classified; M19.041 Primary osteoarthritis, right hand; M65.321 Trigger finger, right index finger; M65.331 Trigger finger, right middle finger; M47.816 Spondylosis without myelopathy or radiculopathy, lumbar region; M19.042 Primary osteoarthritis, left hand; Z96.651 Presence of right artificial knee joint; Z98.890 Other specified postprocedural states; Z87.891 Personal history of nicotine dependence
CPT/HCPCS: 36415; 64721; 80053; 82948; 85025; 93005; A4215; A6449; J0690; J2003; J2250; J2704; J3010; J3490; J7030; J7120; Z7506; Z7512; Z7610